=== PATIENT | male | born 1945 | race Caucasian/White ===

== ENCOUNTER 2023-04-21 04:32 | Inpatient (IN) ==
[2023-04-21] MEDS ORDERED: IOPAMIDOL 100 ML BOTTLE IV ONE (04:33)
[2023-04-21] MEDS ORDERED: 0.9 % SODIUM CHLORIDE 1,000 ML IV ONE (04:49)
[2023-04-21] MEDS ORDERED: ACETAMINOPHEN 1,000 MG/100 ML BAG IV ONE (05:00)
[2023-04-21 05:50] LABS: Basophils # (Auto) 0.03 K/mcL (0.00-0.30); Basophils % (Auto) 0.3 % (0.0-2.0); Eosinophils # (Auto) 0.17 K/mcL (0.00-0.70); Eosinophils % (Auto) 1.8 % (0.0-7.0); Hematocrit 35.2 % (40.1-51.0); Hemoglobin 11.6 g/dL (13.7-17.5); Lymphocytes # (Auto) 1.97 K/mcL (1.50-4.80); Lymphocytes % (Auto) 21.2 % (15.5-49.0); Mean Cell Volume 93.4 fL (80.0-100.0); Mean Platelet Volume 10.4 fL (8.8-12.5); Monocytes # (Auto) 0.81 K/mcL (0.10-0.90); Monocytes % (Auto) 8.7 % (1.0-12.0); Neutrophils % (Auto) 67.5 % (38.0-78.0); Platelet Count 201 K/mcL (140-440); RBC 3.77 M/mcL (4.63-6.08); Red Cell Distribution Width 14.1 % (11.5-14.5); WBC 9.3 K/mcL (4.5-11.0)
[2023-04-21 06:06] LABS: ALT/SGPT 16 U/L (<40); AST/SGOT 18 U/L (<40); Albumin/Globulin Ratio 1.6 (1.0-2.3); Alkaline Phosphatase 87 U/L (39-117); Bilirubin,Total < 0.2 mg/dL (0.1-1.0); Blood Urea Nitrogen 16 mg/dL (8-23); Calcium 9.4 mg/dL (8.6-10.4); Carbon Dioxide 24 mmol/L (22-30); Chloride 110 mmol/L (96-108); Globulin 2.5 gm/dL (2.2-3.7); Glomerular Filtration Rate 86; Glucose 100 mg/dL (70-105)
[2023-04-21] MEDS ORDERED: oxyCODONE IR 5 MG TABLET PO ONE (12:30)
[2023-04-21] MEDS ORDERED: LOSARTAN/HCTZ 100/25 TABLET PO ONE (12:31)
[2023-04-21] MEDS ORDERED: HYDROCHLOROTHIAZIDE 25 MG TABLET PO SCH (12:45)
[2023-04-21] MEDS ORDERED: LOSARTAN 50 MG TABLET PO SCH (12:45)
[2023-04-21] MEDS ORDERED: niCARdipine 25 MG in 0.9 % SODIUM CHLORIDE 240 ML IV ONE ×2 (15:01→16:53)
[2023-04-21] MEDS ORDERED: THIAMINE 100 MG in 0.9 % SODIUM CHLORIDE 50 ML IV SCH (16:00)
[2023-04-21] MEDS ORDERED: ACETAMINOPHEN 325 MG TABLET PO PRN (16:53)
[2023-04-21] MEDS ORDERED: SENNOSIDES 1 TABLET PO PRN (16:53)
[2023-04-21] MEDS ORDERED: POTASSIUM CHLORIDE 40 MEQ in DEXTROSE 5% IN WATER 500 ML IV PRN (16:53)
[2023-04-21] MEDS ORDERED: MAGNESIUM SULFATE 2 GM/50 ML BAG IV PRN (16:53)
[2023-04-21] MEDS ORDERED: IPRATROPIUM/ALBUTEROL 3 ML AMPUL.NEB NEB PRN (16:53)
[2023-04-21] MEDS ORDERED: chlordiazePOXIDE 25 MG CAPSULE PO PRN (16:53)
[2023-04-21] MEDS ORDERED: LORazepam 2 MG/ML VIAL IV PRN (16:53)
[2023-04-21] MEDS ORDERED: POLYETHYLENE GLYCOL 3350 17 GM PACKET PO PRN (16:53)
[2023-04-21] MEDS ORDERED: DEXTROSE 5%-1/2NS 1,000 ML IV SCH (16:53)
[2023-04-21] MEDS ORDERED: ONDANSETRON 4 MG/2 ML VIAL IV PRN (16:53)
[2023-04-21] MEDS ORDERED: POTASSIUM CHLORIDE 20 MEQ TABLET PO PRN ×2 (16:53)
[2023-04-21] MEDS: HYDROcodone/APAP 5/325MG TABLET PO PRN (17:17)
[2023-04-21] MEDS: FOLIC ACID 1 MG TABLET PO SCH (17:18)
[2023-04-21] MEDS: MULTIVIT,THER IRON,CA,FA & MIN 1 TABLET PO SCH (17:18)
[2023-04-21 17:24] LABS: HDL Cholesterol 41 mg/dL (>40); LDL Cholesterol,Calculated 112 mg/dL (<100); Non-HDL Cholesterol 163 mg/dL (<130); Triglycerides 256 mg/dL (<150)
[2023-04-21] MEDS: amLODIPine 10 MG TABLET PO SCH (17:44)
[2023-04-21] MEDS ORDERED: niCARdipine 25 MG in 0.9 % SODIUM CHLORIDE 240 ML IV SCH (20:15)
[2023-04-21] MEDS: ATORVASTATIN 40 MG TABLET PO SCH (20:38)
[2023-04-21] MEDS: PRAMIPEXOLE 0.25 MG TABLET PO SCH (20:38)
[2023-04-21] MEDS: METHOCARBAMOL 750 MG TABLET PO SCH (20:38)
[2023-04-21] MEDS: DOCUSATE SODIUM 100 MG CAPSULE PO SCH (20:38)
[2023-04-21] MEDS: 0.9 % SODIUM CHLORIDE 10 ML SYRINGE IV SCH (20:39)
[2023-04-21] MEDS ORDERED: FAMOTIDINE 20 MG TABLET PO SCH (21:00)
[2023-04-22] MEDS: HYDROcodone/APAP 5/325MG TABLET PO PRN ×4 (00:04→20:13)
[2023-04-22] MEDS: 0.9 % SODIUM CHLORIDE 10 ML SYRINGE IV SCH ×3 (05:03→20:13)
[2023-04-22 06:28] LABS: Basophils # (Auto) 0.02 K/mcL (0.00-0.30); Basophils % (Auto) 0.3 % (0.0-2.0); Eosinophils # (Auto) 0.12 K/mcL (0.00-0.70); Eosinophils % (Auto) 1.6 % (0.0-7.0); Hematocrit 37.1 % (40.1-51.0); Hemoglobin 12.3 g/dL (13.7-17.5); Lymphocytes # (Auto) 2.33 K/mcL (1.50-4.80); Lymphocytes % (Auto) 30.9 % (15.5-49.0); Mean Cell Volume 92.8 fL (80.0-100.0); Mean Corpuscular HGB Conc 33.2 g/dL (31.0-36.0); Mean Platelet Volume 10.7 fL (8.8-12.5); Monocytes # (Auto) 0.81 K/mcL (0.10-0.90); Monocytes % (Auto) 10.7 % (1.0-12.0); Neutrophils % (Auto) 56.1 % (38.0-78.0); Platelet Count 215 K/mcL (140-440); WBC 7.5 K/mcL (4.5-11.0)
[2023-04-22 06:45] LABS: ALT/SGPT 11 U/L (<40); AST/SGOT 16 U/L (<40); Albumin 3.7 gm/dL (3.2-5.2); Albumin/Globulin Ratio 1.4 (1.0-2.3); Alkaline Phosphatase 86 U/L (39-117); Bilirubin,Direct < 0.2 mg/dL (0-0.3); Bilirubin,Total 0.2 mg/dL (0.1-1.0); Blood Urea Nitrogen 12 mg/dL (8-23); Calcium 9.5 mg/dL (8.6-10.4); Carbon Dioxide 25 mmol/L (22-30); Chloride 107 mmol/L (96-108); Globulin 2.6 gm/dL (2.2-3.7); Glomerular Filtration Rate 82; Glucose 104 mg/dL (70-105); Lactate Dehydrogenase 174 U/L (135-225); Phosphorous 3.1 mg/dL (2.5-4.5); Triglycerides 208 mg/dL (<150)
[2023-04-22] MEDS: SERTRALINE 100 MG TABLET PO SCH (08:27)
[2023-04-22] MEDS: THIAMINE 100 MG in 0.9 % SODIUM CHLORIDE 50 ML IV SCH (08:27)
[2023-04-22] MEDS: amLODIPine 10 MG TABLET PO SCH (08:28)
[2023-04-22] MEDS: buPROPion 150 MG TAB.XL.24H PO SCH (08:28)
[2023-04-22] MEDS: FOLIC ACID 1 MG TABLET PO SCH (08:28)
[2023-04-22] MEDS: PRAMIPEXOLE 0.25 MG TABLET PO SCH ×2 (08:28→20:13)
[2023-04-22] MEDS: ASPIRIN 81 MG TAB.CHEW CHEWED SCH (08:29)
[2023-04-22] MEDS: LOSARTAN 50 MG TABLET PO SCH (08:29)
[2023-04-22] MEDS: MULTIVIT,THER IRON,CA,FA & MIN 1 TABLET PO SCH (08:29)
[2023-04-22] MEDS: DOCUSATE SODIUM 100 MG CAPSULE PO SCH ×2 (08:30→19:34)
[2023-04-22] MEDS: PANTOPRAZOLE 40 MG TABLET PO SCH (08:30)
[2023-04-22] MEDS: ENOXAPARIN 40 MG/0.4 ML SYRINGE SQ SCH (08:32)
[2023-04-22] MEDS: LIDOCAINE PATCH TOPICAL SCH (10:20)
[2023-04-22] MEDS: NICOTINE 21 MG PATCH TOPICAL SCH (10:21)
[2023-04-22] MEDS: ATORVASTATIN 40 MG TABLET PO SCH (20:13)
[2023-04-22] MEDS: METHOCARBAMOL 750 MG TABLET PO SCH (20:13)
[2023-04-23] MEDS: hydrALAZINE 20 MG/ML VIAL IV PRN ×2 (03:39→05:33)
[2023-04-23] MEDS: 0.9 % SODIUM CHLORIDE 10 ML SYRINGE IV SCH ×3 (04:18→21:47)
[2023-04-23] MEDS: HYDROcodone/APAP 5/325MG TABLET PO PRN ×4 (05:33→19:55)
[2023-04-23] MEDS: HYDROmorphone 0.5 MG/0.5 ML SYRINGE IV PRN ×2 (07:59→13:15)
[2023-04-23] MEDS: KETOROLAC 15 MG/ML VIAL IV SCH ×2 (08:00→19:54)
[2023-04-23] MEDS ORDERED: THIAMINE 100 MG/ML VIAL ONE (11:15)
[2023-04-23] MEDS: LOSARTAN 50 MG TABLET PO SCH (11:21)
[2023-04-23] MEDS: SERTRALINE 100 MG TABLET PO SCH (11:21)
[2023-04-23] MEDS: PRAMIPEXOLE 0.25 MG TABLET PO SCH ×2 (11:21→19:55)
[2023-04-23] MEDS: buPROPion 150 MG TAB.XL.24H PO SCH (11:21)
[2023-04-23] MEDS: FOLIC ACID 1 MG TABLET PO SCH (11:22)
[2023-04-23] MEDS: ASPIRIN 81 MG TAB.CHEW CHEWED SCH (11:22)
[2023-04-23] MEDS: ENOXAPARIN 40 MG/0.4 ML SYRINGE SQ SCH (11:22)
[2023-04-23] MEDS: amLODIPine 10 MG TABLET PO SCH (11:22)
[2023-04-23] MEDS: MULTIVIT,THER IRON,CA,FA & MIN 1 TABLET PO SCH (11:22)
[2023-04-23] MEDS: DOCUSATE SODIUM 100 MG CAPSULE PO SCH ×2 (11:22→19:55)
[2023-04-23] MEDS: PANTOPRAZOLE 40 MG TABLET PO SCH (11:22)
[2023-04-23] MEDS: THIAMINE 100 MG in 0.9 % SODIUM CHLORIDE 50 ML IV SCH (12:00)
[2023-04-23] MEDS: LIDOCAINE PATCH TOPICAL SCH (13:15)
[2023-04-23] MEDS: NICOTINE 21 MG PATCH TOPICAL SCH (13:16)
[2023-04-23] MEDS: ATORVASTATIN 40 MG TABLET PO SCH (19:55)
[2023-04-23] MEDS: METHOCARBAMOL 750 MG TABLET PO SCH (19:55)
[2023-04-24] MEDS: HYDROcodone/APAP 5/325MG TABLET PO PRN ×2 (03:08→09:00)
[2023-04-24] MEDS: HYDROmorphone 0.5 MG/0.5 ML SYRINGE IV PRN ×3 (03:09→09:05)
[2023-04-24] MEDS: KETOROLAC 15 MG/ML VIAL IV SCH (05:06)
[2023-04-24] MEDS: 0.9 % SODIUM CHLORIDE 10 ML SYRINGE IV SCH ×3 (05:07→22:10)
[2023-04-24] MEDS: LOSARTAN 50 MG TABLET PO SCH (08:03)
[2023-04-24] MEDS: MULTIVIT,THER IRON,CA,FA & MIN 1 TABLET PO SCH (08:03)
[2023-04-24] MEDS: amLODIPine 10 MG TABLET PO SCH (08:03)
[2023-04-24] MEDS: ENOXAPARIN 40 MG/0.4 ML SYRINGE SQ SCH (08:03)
[2023-04-24] MEDS: FOLIC ACID 1 MG TABLET PO SCH (08:03)
[2023-04-24] MEDS: DOCUSATE SODIUM 100 MG CAPSULE PO SCH ×2 (08:03→20:08)
[2023-04-24] MEDS: SERTRALINE 100 MG TABLET PO SCH (08:04)
[2023-04-24] MEDS: THIAMINE 100 MG TABLET PO SCH ×2 (08:04→09:01)
[2023-04-24] MEDS: PANTOPRAZOLE 40 MG TABLET PO SCH (08:04)
[2023-04-24] MEDS: ASPIRIN 81 MG TAB.CHEW CHEWED SCH (08:04)
[2023-04-24] MEDS: PRAMIPEXOLE 0.25 MG TABLET PO SCH ×2 (08:04→20:08)
[2023-04-24] MEDS: buPROPion 150 MG TAB.XL.24H PO SCH (08:04)
[2023-04-24] MEDS: LIDOCAINE PATCH TOPICAL SCH (09:00)
[2023-04-24] MEDS: NICOTINE 21 MG PATCH TOPICAL SCH (09:00)
[2023-04-24] MEDS ORDERED: oxyCODONE IR 5 MG TABLET PO PRN (12:04)
[2023-04-24] MEDS: ACETAMINOPHEN 500 MG TABLET PO SCH ×2 (13:45→22:08)
[2023-04-24] MEDS: METHOCARBAMOL 750 MG TABLET PO PRN (15:46)
[2023-04-24] MEDS: oxyCODONE IR 5 MG TABLET PO PRN ×2 (15:46→19:28)
[2023-04-24] MEDS: CELECOXIB 200 MG CAPSULE PO SCH (20:08)
[2023-04-24] MEDS: ATORVASTATIN 40 MG TABLET PO SCH (20:08)
[2023-04-25] MEDS: oxyCODONE IR 5 MG TABLET PO PRN ×3 (01:27→09:58)
[2023-04-25] MEDS: METHOCARBAMOL 750 MG TABLET PO PRN (01:27)
[2023-04-25] MEDS: 0.9 % SODIUM CHLORIDE 10 ML SYRINGE IV SCH (06:45)
[2023-04-25] MEDS: ACETAMINOPHEN 500 MG TABLET PO SCH (06:45)
[2023-04-25] MEDS: buPROPion 150 MG TAB.XL.24H PO SCH (08:10)
[2023-04-25] MEDS: LOSARTAN 50 MG TABLET PO SCH (08:10)
[2023-04-25] MEDS: CELECOXIB 200 MG CAPSULE PO SCH (08:12)
[2023-04-25] MEDS: SERTRALINE 100 MG TABLET PO SCH (08:12)
[2023-04-25] MEDS: FOLIC ACID 1 MG TABLET PO SCH (08:12)
[2023-04-25] MEDS: amLODIPine 10 MG TABLET PO SCH (08:12)
[2023-04-25] MEDS: MULTIVIT,THER IRON,CA,FA & MIN 1 TABLET PO SCH (08:12)
[2023-04-25] MEDS: DOCUSATE SODIUM 100 MG CAPSULE PO SCH (08:12)
[2023-04-25] MEDS: PRAMIPEXOLE 0.25 MG TABLET PO SCH (08:12)
[2023-04-25] MEDS: ASPIRIN 81 MG TAB.CHEW CHEWED SCH (08:12)
[2023-04-25] MEDS: PANTOPRAZOLE 40 MG TABLET PO SCH (08:12)
[2023-04-25] MEDS: THIAMINE 100 MG TABLET PO SCH (08:13)
[2023-04-25] MEDS: ENOXAPARIN 40 MG/0.4 ML SYRINGE SQ SCH (08:13)
[2023-04-25] MEDS ORDERED: HYDROmorphone 0.5 MG/0.5 ML SYRINGE IV PRN (08:34)
[2023-04-25] MEDS ORDERED: HYDROCHLOROTHIAZIDE 12.5 MG CAPSULE PO SCH (09:00)
[2023-04-25] MEDS: LIDOCAINE PATCH TOPICAL SCH (09:58)
[2023-04-25] MEDS: NICOTINE 21 MG PATCH TOPICAL SCH (09:58)
== END 2023-04-25 13:15 | disposition home health service (06) | DRG 78 ==
LOC: ED 04:32 → ICU 16:23 → MEDSUR 04-22 13:52
PROVIDERS: ADMIT Internal Medicine; ATTEND Internal Medicine